=== PATIENT | female | born 1990 ===

== ENCOUNTER 2017-11-09 11:49 | Inpatient (IN) | payer OTHER ==
[~2017-11-09] VITALS: Ht 167.6 cm; Wt 124.7 kg
[~2017-11-09 11:49] MED LIST: CALCIUM500 M1 PO; CITROMA296 ML; FOLIC ACID0.4 MG PO; PRENATAL 19 TA1 EACH PO; TRISPEC PSE LI118 ML
== END 2017-12-04 13:25 | disposition home or self-care (01) | DRG 782 ==
LOC: LDR 12-03 16:42 → OB/GYN 12-03 22:22
PROC: BY4FZZZ Ultrasonography of Third Trimester, Single Fetus (ICD-10-PCS; principal; 2017-12-03)
PROC: 4A1HXCZ Monitoring of Products of Conception, Cardiac Rate, External Approach (ICD-10-PCS; 2017-12-03)
DX: O13.3 Gestational [pregnancy-induced] hypertension without significant proteinuria, third trimester (principal); Z3A.39 39 weeks gestation of pregnancy

== ENCOUNTER 2017-12-10 09:15 | Inpatient (IN) | payer OTHER ==
[~2017-12-10] VITALS: Ht 170.2 cm; Wt 3.6 kg
[2017-12-13] MEDS ORDERED: DOCUSATE SODIU100 MG PO (15:09)
[2017-12-13] MEDS ORDERED: ACETAMINOPHEN500 M1 PO (15:09)
[2017-12-13] MEDS ORDERED: NABUMETONE750 MG PO (15:09)
== END 2017-12-13 16:29 | disposition home or self-care (01) | DRG 766 ==
LOC: LDR 09:15 → OB/GYN 12-11 11:01
PROVIDERS: Obstetrics & Gynecology
PROC: 3E0P7VZ Introduction of Hormone into Female Reproductive, Via Natural or Artificial Opening (ICD-10-PCS; 2017-12-11)
PROC: 3E033VJ Introduction of Other Hormone into Peripheral Vein, Percutaneous Approach (ICD-10-PCS; 2017-12-11)
PROC: 4A1HXCZ Monitoring of Products of Conception, Cardiac Rate, External Approach (ICD-10-PCS; 2017-12-11)
PROC: 10D00Z1 Extraction of Products of Conception, Low, Open Approach (ICD-10-PCS; principal; 2017-12-11 09:00)
DX: O61.0 Failed medical induction of labor (principal); O99.02 Anemia complicating childbirth; O99.214 Obesity complicating childbirth; Z3A.40 40 weeks gestation of pregnancy; Z37.0 Single live birth

== ENCOUNTER 2019-08-14 11:35 | Emergency (ER) | payer OTHER ==
[~2019-08-14] VITALS: Ht 172.7 cm; Wt 113.4 kg
[~2019-08-14 11:35] MED LIST changes: +ACETAMINOPHEN500 M1 PO; +DOCUSATE SODIU100 MG PO; +NABUMETONE750 MG PO
== END 2019-08-14 17:01 | disposition home or self-care (01) ==
LOC: ER 11:35
DX: K52.9 Noninfective gastroenteritis and colitis, unspecified (principal); J11.1 Influenza due to unidentified influenza virus with other respiratory manifestations

== ENCOUNTER → 2021-03-21 08:18 | Outpatient (CLI) | payer OTHER | END | disposition home or self-care (01) | LOC: RAD 08:18 | PROVIDERS: ATTEND Chiropractor | DX: M99.03 Segmental and somatic dysfunction of lumbar region (principal); M99.01 Segmental and somatic dysfunction of cervical region; M99.02 Segmental and somatic dysfunction of thoracic region; M99.04 Segmental and somatic dysfunction of sacral region; M99.05 Segmental and somatic dysfunction of pelvic region ==